=== PATIENT | female | born 1980 | race Caucasian/White ===

== ENCOUNTER 2019-09-28 10:56 | Emergency (ER) | payer OTHER ==
[~2019-09-28] VITALS: Ht 157.5 cm; Wt 97.5 kg
[2019-09-28] MEDS ORDERED: FLEXERIL PO (12:16)
[2019-09-28] MEDS ORDERED: PREDNISONE 10 M10 M1 PO (12:16)
[2019-09-28] MEDS ORDERED: NORCO 5-325 TA1 EAC2 PO (12:16)
[2019-09-28 13:02] VITALS: BP 162/98
== END 2019-09-28 13:03 | disposition home or self-care (01) ==
LOC: M.ERS 10:56
DX: M54.42 Lumbago with sciatica, left side (principal); M54.41 Lumbago with sciatica, right side; F17.210 Nicotine dependence, cigarettes, uncomplicated; Z98.890 Other specified postprocedural states; Z90.49 Acquired absence of other specified parts of digestive tract